=== PATIENT | female | born 1950 | race African-American/Black ===

== ENCOUNTER 2019-08-09 16:47 | Inpatient (IN) ==
[2019-08-09 18:30] LABS: Basophils % 0.2 % (0.0-0.8); Hematocrit 34.2 VOL% (35.7-47.0); Hemoglobin 10.9 GM/DL (12.0-16.0); Immature Granulocytes % 0.6 %; Immature Granulocytes Absolute 0.03 #; Lymphocytes # 0.9 10*3/uL (1.4-4.0); Lymphocytes % 16.5 % (21.3-54.2); Mean Corpuscular HGB Conc 31.9 GM/DL (32-36); Mean Platelet Volume 10.4 FL (9.6-12.0); Monocytes % 11.2 % (1.7-12.7); Neutrophils % 71.5 % (38.7-73.9); Platelet Count 235 T/CUMM (130-400); Red Blood Count 3.76 MC/CUMM (3.8-5.5); Red Cell Distribution Width 13.2 % (9.3-17.3); White Blood Count 5.4 T/CUMM (4-12)
[2019-08-09 18:47] LABS: Apearance,Urine Slightly Hazy (Clear); Bacteria,Urine Occasional /HPF (Few); Bilirubin,Urine Negative (Negative); Blood, Urine Negative (Negative); Glucose,Urine (UA) Negative (Negative); Ketones,Urine 20 mg/dL (Negative); Mucus,Urine Occasional /LPF (Occasional); Nitrite,Urine Negative (Negative); Protein,Urine Negative; Squamous Epithelial Cell,Urine Few /HPF (0-10); Urine Color Yellow (Yellow); Urine Specific Gravity 1.021 (1.001-1.035)
[2019-08-09 19:00] LABS: Alanine Aminotransferase 28 U/L (13-56); Albumin 3.6 G/DL (3.4-5.0); Alkaline Phosphatase 62 U/L (45-117); Aspartate Amino Transferase 29 U/L (0-37); Bilirubin,Total < 0.39 MG/DL (0.2-1.0); Blood Urea Nitrogen 10 MG/DL (7-18); Calcium 8.8 MG/DL (8.5-10.1); Estimated Glom Filtration Rate 67 ML/MIN; Glucose 106 MG/DL (74-106); Osmolality,Calculated 268.1 MOS/KG (273-304); Total Protein 7.5 G/DL (6.4-8.3); Troponin I < 0.015 NG/ML (0.00-0.045)
[2019-08-09 19:39] LABS: Ferritin 376.7 ng/ml (8-252)
[2019-08-09] MEDS ORDERED: ALBUTEROL/IPRATROPIUM 3 ML NEB RESP TX PRN (21:38)
[2019-08-09] MEDS: ACETAMINOPHEN 325 MG TABLET PO PRN (23:29)
[2019-08-09] MEDS: DOCUSATE SODIUM 100 MG CAPSULE PO SCH (23:29)
[2019-08-10] MEDS: SODIUM CHLORIDE 0.45% 1,000 ML IV SCH ×2 (08:31→16:34)
[2019-08-10] MEDS: LEVOTHYROXINE 75 MCG TABLET PO SCH (08:31)
[2019-08-10] MEDS: ACETAMINOPHEN 325 MG TABLET PO PRN ×2 (08:31→15:53)
[2019-08-10] MEDS: PANTOPRAZOLE 40 MG TABLET PO SCH (08:31)
[2019-08-10] MEDS: FUROSEMIDE 40 MG TABLET PO SCH (08:31)
[2019-08-10] MEDS: DOCUSATE SODIUM 100 MG CAPSULE PO SCH ×2 (10:39→20:51)
[2019-08-10] MEDS: AZITHROMYCIN 250 MG TABLET PO SCH (12:14)
[2019-08-10] MEDS: cefTRIAXone 1,000 MG in SYRINGE 1 EACH IV SCH (12:54)
[2019-08-10] MEDS ORDERED: ALUMINUM/MAGNES/SIMETH MAX STR 30 ML UDCUP PO PRN (14:14)
[2019-08-10] MEDS ORDERED: ZALEPLON 5 MG CAPSULE PO PRN (14:15)
[2019-08-10] MEDS: SIMVASTATIN 40 MG TABLET PO SCH (20:51)
[2019-08-11] MEDS: SODIUM CHLORIDE 0.45% 1,000 ML IV SCH ×3 (00:03→16:48)
[2019-08-11 06:04] LABS: Hematocrit 32.5 VOL% (35.7-47.0); Hemoglobin 10.5 GM/DL (12.0-16.0); Mean Corpuscular Volume 90.3 FL (87-102); White Blood Count 6.7 T/CUMM (4-12)
[2019-08-11 06:05] LABS: Basophils % 0.1 % (0.0-0.8); Immature Granulocytes % 0.4 %; Immature Granulocytes Absolute 0.03 #; Lymphocytes # 0.9 10*3/uL (1.4-4.0); Lymphocytes % 13.6 % (21.3-54.2); Mean Corpuscular HGB Conc 32.3 GM/DL (32-36); Mean Platelet Volume 10.6 FL (9.6-12.0); Monocytes % 10.3 % (1.7-12.7); Neutrophils % 75.6 % (38.7-73.9); Platelet Count 239 T/CUMM (130-400); Red Cell Distribution Width 13.4 % (9.3-17.3)
[2019-08-11 06:42] LABS: Alanine Aminotransferase 22 U/L (13-56); Albumin 2.9 G/DL (3.4-5.0); Alkaline Phosphatase 52 U/L (45-117); Aspartate Amino Transferase 26 U/L (0-37); Bilirubin,Total < 0.39 MG/DL (0.2-1.0); Blood Urea Nitrogen 9 MG/DL (7-18); Calcium 7.8 MG/DL (8.5-10.1); Estimated Glom Filtration Rate 88 ML/MIN; Glucose 89 MG/DL (74-106); HDL Cholesterol 58 MG/DL (40-60); Osmolality,Calculated 263.4 MOS/KG (273-304); Risk Ratio 2.45; Total Protein 6.5 G/DL (6.4-8.3); Triglycerides 51 MG/DL (2-150); VLDL CHOLESTEROL 10.2 MG/DL
[2019-08-11 06:47] LABS: Platelet Estimate Normal; Smudge Cells Few
[2019-08-11] MEDS: ONDANSETRON 4 MG/2 ML VIAL IV PRN ×2 (09:30→21:03)
[2019-08-11] MEDS: DOCUSATE SODIUM 100 MG CAPSULE PO SCH ×3 (11:30→22:45)
[2019-08-11] MEDS: FUROSEMIDE 40 MG TABLET PO SCH (11:31)
[2019-08-11] MEDS: PANTOPRAZOLE 40 MG TABLET PO SCH (11:31)
[2019-08-11] MEDS: AZITHROMYCIN 250 MG TABLET PO SCH (11:32)
[2019-08-11] MEDS: LEVOTHYROXINE 75 MCG TABLET PO SCH (11:32)
[2019-08-11] MEDS: cefTRIAXone 1,000 MG in SYRINGE 1 EACH IV SCH (14:29)
[2019-08-11] MEDS ORDERED: PROMETHAZINE INJ 12.5 MG in SODIUM CHLORIDE 0.9% 50 ML IV ONE (15:30)
[2019-08-11] MEDS: SIMVASTATIN 40 MG TABLET PO SCH (20:59)
[2019-08-11] MEDS: ACETAMINOPHEN 325 MG TABLET PO PRN (21:10)
[2019-08-12] MEDS: SODIUM CHLORIDE 0.45% 1,000 ML IV SCH ×4 (01:41→22:57)
[2019-08-12 05:59] LABS: Basophils % 0.1 % (0.0-0.8); Hematocrit 33.3 VOL% (35.7-47.0); Hemoglobin 10.5 GM/DL (12.0-16.0); Immature Granulocytes % 0.7 %; Immature Granulocytes Absolute 0.05 #; Lymphocytes # 1.2 10*3/uL (1.4-4.0); Lymphocytes % 15.8 % (21.3-54.2); Mean Corpuscular HGB Conc 31.5 GM/DL (32-36); Mean Corpuscular Volume 93.3 FL (87-102); Mean Platelet Volume 10.7 FL (9.6-12.0); Monocytes % 8.9 % (1.7-12.7); Neutrophils % 74.5 % (38.7-73.9); Platelet Count 271 T/CUMM (130-400); Red Blood Count 3.57 MC/CUMM (3.8-5.5); Red Cell Distribution Width 13.3 % (9.3-17.3); White Blood Count 7.3 T/CUMM (4-12)
[2019-08-12] MEDS: ONDANSETRON 4 MG/2 ML VIAL IV PRN ×2 (06:00→15:44)
[2019-08-12] MEDS: ACETAMINOPHEN 325 MG TABLET PO PRN ×2 (06:05→15:43)
[2019-08-12 06:26] LABS: Anisocytosis Slight; Platelet Estimate Normal
[2019-08-12 06:27] LABS: Macrocytosis Slight; Poikilocytosis Slight
[2019-08-12] MEDS: DOCUSATE SODIUM 100 MG CAPSULE PO SCH ×2 (09:02→20:55)
[2019-08-12] MEDS: AZITHROMYCIN 250 MG TABLET PO SCH (09:02)
[2019-08-12] MEDS: PANTOPRAZOLE 40 MG TABLET PO SCH (09:02)
[2019-08-12] MEDS: FUROSEMIDE 40 MG TABLET PO SCH (09:02)
[2019-08-12] MEDS: LEVOTHYROXINE 75 MCG TABLET PO SCH (09:02)
[2019-08-12 09:22] LABS: Alanine Aminotransferase 20 U/L (13-56); Albumin 2.7 G/DL (3.4-5.0); Alkaline Phosphatase 50 U/L (45-117); Aspartate Amino Transferase 28 U/L (0-37); Bilirubin,Total < 0.39 MG/DL (0.2-1.0); Blood Urea Nitrogen 6 MG/DL (7-18); Calcium 8.2 MG/DL (8.5-10.1); Estimated Glom Filtration Rate 88 ML/MIN; Glucose 104 MG/DL (74-106); Osmolality,Calculated 270.8 MOS/KG (273-304); Total Protein 6.5 G/DL (6.4-8.3)
[2019-08-12] MEDS: cefTRIAXone 1,000 MG in SYRINGE 1 EACH IV SCH (10:03)
[2019-08-12] MEDS ORDERED: HYDROXYCHLOROQUINE 200 MG TABLET PO ONE (15:00)
[2019-08-12] MEDS: SIMVASTATIN 40 MG TABLET PO SCH (20:55)
[2019-08-13 04:48] LABS: Basophils % 0.2 % (0.0-0.8); Eosinophils % 0.2 % (0.00-10.9); Hematocrit 31.8 VOL% (35.7-47.0); Hemoglobin 10.3 GM/DL (12.0-16.0); Immature Granulocytes % 0.9 %; Immature Granulocytes Absolute 0.05 #; Lymphocytes # 1.1 10*3/uL (1.4-4.0); Lymphocytes % 19.3 % (21.3-54.2); Mean Corpuscular HGB Conc 32.4 GM/DL (32-36); Mean Corpuscular Volume 89.8 FL (87-102); Mean Platelet Volume 10.5 FL (9.6-12.0); Monocytes % 10.6 % (1.7-12.7); Neutrophils % 68.8 % (38.7-73.9); Platelet Count 297 T/CUMM (130-400); Red Blood Count 3.54 MC/CUMM (3.8-5.5); Red Cell Distribution Width 13.2 % (9.3-17.3); White Blood Count 5.8 T/CUMM (4-12)
[2019-08-13 05:33] LABS: Band Neutrophils 2 % (0-10); Lymphocytes 24 % (20-55); Segmented Neutrophils 66 % (50-85); Total Cells Counted 100
[2019-08-13 05:34] LABS: Atypical Lymphocytes Few; Hypochromasia 1+; Microcytosis Slight; Platelet Estimate Normal
[2019-08-13 05:49] LABS: Sedimentation Rate-Westergren 92 MM/HR (0-30)
[2019-08-13] MEDS: SODIUM CHLORIDE 0.45% 1,000 ML IV SCH ×3 (08:08→22:43)
[2019-08-13] MEDS: FUROSEMIDE 40 MG TABLET PO SCH (08:29)
[2019-08-13] MEDS: ONDANSETRON 4 MG/2 ML VIAL IV PRN (08:29)
[2019-08-13] MEDS: DOCUSATE SODIUM 100 MG CAPSULE PO SCH ×2 (08:29→22:19)
[2019-08-13] MEDS: AZITHROMYCIN 250 MG TABLET PO SCH (08:29)
[2019-08-13] MEDS: LEVOTHYROXINE 75 MCG TABLET PO SCH (08:29)
[2019-08-13] MEDS: PANTOPRAZOLE 40 MG TABLET PO SCH (08:29)
[2019-08-13] MEDS ORDERED: HYDROXYCHLOROQUINE 200 MG TABLET PO ONE (09:00)
[2019-08-13] MEDS: cefTRIAXone 1,000 MG in SYRINGE 1 EACH IV SCH (10:01)
[2019-08-13] MEDS: SIMVASTATIN 40 MG TABLET PO SCH (21:30)
[2019-08-13] MEDS: HYDROXYCHLOROQUINE 200 MG TABLET PO SCH (21:30)
[2019-08-14] MEDS: SODIUM CHLORIDE 0.45% 1,000 ML IV SCH ×2 (06:44→17:04)
[2019-08-14 07:12] LABS: Basophils % 0.4 % (0.0-0.8); Eosinophils % 0.9 % (0.00-10.9); Hematocrit 31.3 VOL% (35.7-47.0); Hemoglobin 10.2 GM/DL (12.0-16.0); Immature Granulocytes % 1.3 %; Immature Granulocytes Absolute 0.06 #; Lymphocytes # 1.4 10*3/uL (1.4-4.0); Lymphocytes % 29.2 % (21.3-54.2); Mean Corpuscular HGB Conc 32.6 GM/DL (32-36); Mean Corpuscular Volume 89.4 FL (87-102); Mean Platelet Volume 10.7 FL (9.6-12.0); Monocytes % 11.6 % (1.7-12.7); Neutrophils % 56.6 % (38.7-73.9); Platelet Count 329 T/CUMM (130-400); Red Cell Distribution Width 13.2 % (9.3-17.3); White Blood Count 4.7 T/CUMM (4-12)
[2019-08-14 07:25] LABS: Calcium 8.5 MG/DL (8.5-10.1); Osmolality,Calculated 275.4 MOS/KG (273-304)
[2019-08-14 07:46] LABS: Anisocytosis 1+; Band Neutrophils 4 % (0-10); Lymphocytes 20 % (20-55); Nucleated Red Blood Cells 1 (0-5); Platelet Estimate Normal; Segmented Neutrophils 60 % (50-85); Smudge Cells Few; Total Cells Counted 100
[2019-08-14] MEDS: HYDROXYCHLOROQUINE 200 MG TABLET PO SCH ×2 (08:34→22:17)
[2019-08-14] MEDS: DOCUSATE SODIUM 100 MG CAPSULE PO SCH ×2 (08:34→22:17)
[2019-08-14] MEDS: FUROSEMIDE 40 MG TABLET PO SCH (08:34)
[2019-08-14] MEDS: PANTOPRAZOLE 40 MG TABLET PO SCH (08:35)
[2019-08-14] MEDS: ZINC SULFATE 220 MG CAPSULE PO SCH (08:35)
[2019-08-14] MEDS: AZITHROMYCIN 250 MG TABLET PO SCH (08:35)
[2019-08-14] MEDS: LEVOTHYROXINE 75 MCG TABLET PO SCH (08:35)
[2019-08-14] MEDS: cefTRIAXone 1,000 MG in SYRINGE 1 EACH IV SCH (11:33)
[2019-08-14] MEDS: SIMVASTATIN 40 MG TABLET PO SCH (22:18)
[2019-08-15] MEDS: SODIUM CHLORIDE 0.45% 1,000 ML IV SCH ×3 (00:35→17:08)
[2019-08-15 06:34] LABS: Calcium 8.5 MG/DL (8.5-10.1); Osmolality,Calculated 278.3 MOS/KG (273-304)
[2019-08-15] MEDS: AZITHROMYCIN 250 MG TABLET PO SCH (09:28)
[2019-08-15] MEDS: PANTOPRAZOLE 40 MG TABLET PO SCH (09:28)
[2019-08-15] MEDS: DOCUSATE SODIUM 100 MG CAPSULE PO SCH ×2 (09:28→21:05)
[2019-08-15] MEDS: HYDROXYCHLOROQUINE 200 MG TABLET PO SCH ×2 (09:28→21:05)
[2019-08-15] MEDS: LEVOTHYROXINE 75 MCG TABLET PO SCH (09:28)
[2019-08-15] MEDS: FUROSEMIDE 40 MG TABLET PO SCH (09:28)
[2019-08-15] MEDS: cefTRIAXone 1,000 MG in SYRINGE 1 EACH IV SCH (13:37)
[2019-08-15] MEDS: SIMVASTATIN 40 MG TABLET PO SCH (21:05)
[2019-08-16] MEDS: SODIUM CHLORIDE 0.45% 1,000 ML IV SCH (01:05)
[2019-08-16] MEDS: PANTOPRAZOLE 40 MG TABLET PO SCH (09:48)
[2019-08-16] MEDS: AZITHROMYCIN 250 MG TABLET PO SCH (09:48)
[2019-08-16] MEDS: LEVOTHYROXINE 75 MCG TABLET PO SCH (09:48)
[2019-08-16] MEDS: FUROSEMIDE 40 MG TABLET PO SCH (09:48)
[2019-08-16] MEDS: ZINC SULFATE 220 MG CAPSULE PO SCH (09:48)
[2019-08-16] MEDS: DOCUSATE SODIUM 100 MG CAPSULE PO SCH (09:48)
[2019-08-16] MEDS: cefTRIAXone 1,000 MG in SYRINGE 1 EACH IV SCH (11:02)
[2019-08-16 14:29] VITALS: BP 139/70
== END 2019-08-16 14:21 | disposition home or self-care (01) | DRG 177 ==
LOC: N.ED 16:47 → N.EDINP 19:52 → N.2E 20:38
PROVIDERS: ADMIT Family Medicine; ATTEND Family Medicine